=== PATIENT | male | born 1995 | race Caucasian/White ===

== ENCOUNTER 2021-12-16 18:26 | Outpatient (CLI) | payer OTHER ==
[2021-12-16 21:26] VITALS: BP 117/79
[2021-12-16] MEDS: OLANZapine 5 MG TABLET PO SCH (21:29)
[2021-12-16 21:38] VITALS: BP 117/79
[2021-12-17] MEDS: OLANZapine 5 MG TABLET PO SCH (09:11)
[2021-12-17 09:32] VITALS: BP 120/82
[2021-12-17] MEDS ORDERED: OLAN5TAB52 PO (18:12)
== END 2021-12-17 15:20 | disposition home or self-care (01) ==
LOC: CSU 18:26
PROVIDERS: ATTEND Nurse Practitioner Psychiatric/Mental Health
DX: F20.9 Schizophrenia, unspecified (principal)
CPT/HCPCS: 90792; Z7610